=== PATIENT | female | born 1965 | race Asian ===

== ENCOUNTER 2020-09-01 09:15 | Emergency (ER) | payer MEDICARE, MEDICAID ==
[~2020-09-01] VITALS: Ht 165.1 cm; Wt 100.0 kg
--- NOTE | 2020-09-01 09:44 | NUR ---
Patient states she has the answer for balding and for not wearing masks. Patient states people are destorying the earth. Patient non-stop talking. Patient states her last seizure was before her surgery in 2002 in [place] Continue to monitor.
[2020-09-01 09:45] LABS: CLARITY,URINE CLOUDY (Clear); COLOR,URINE YELLOW (Yellow); GLUCOSE, URINE NEGATIVE (Neg); KETONES,URINE NEGATIVE (Neg); LEUKOCYTE ESTERASE ,URINE SMALL (Neg); NITRITES, URINE NEGATIVE (Neg); OCCULT BLOOD,URINE TRACE-INTACT (Neg); PROTEIN,URINE 100 mg/dl (Neg); UROBILINOGEN,URINE 0.2 E.U/dL (0.2-1.0)
[2020-09-01 09:46] LABS: UA COLLECTION TYPE CLN CATCH MIDSTREAM
[2020-09-01 09:52] LABS: SQUAMOUS EPITHELIAL CELL,UR MANY /LPF (FEW)
[2020-09-01 09:53] LABS: BACTERIA,URINE 2+ /HPF (Neg); MUCUS STRANDS MANY /LPF (Neg); RBC,URINE 0-2 /HPF (0-2); TRANSITIONAL EPI CELLS,URINE FEW /HPF
[2020-09-01 09:55] LABS: URINE AMPHETAMINE SCREEN NEGATIVE (Neg); URINE BARBITUATE SCREEN NEGATIVE (Neg); URINE BENZODIAZEPINES SCREEN NEGATIVE (Neg); URINE CANNABINOID SCREEN NEGATIVE (Neg); URINE COCAINE SCREEN NEGATIVE (Neg); URINE METHADONE SCREEN NEGATIVE (Neg); URINE OPIATE SCREEN NEGATIVE (Neg); URINE PHENCYCLIDINE SCREEN NEGATIVE (Neg)
[2020-09-01 10:28] LABS: BASOPHILS % (AUTO) 0.4 % (0-1); EOSINOPHILS % (AUTO) 0.6 % (0-6); HEMATOCRIT 42.7 % (35.0-45.0); HEMOGLOBIN 14.6 g/dl (12.0-16.0); LYMPHOCYTES # (AUTO) 1.4 X10'3 (1.1-4.8); LYMPHOCYTES % (AUTO) 21.2 % (21-51); MEAN CORPUSCULAR HGB CONC 34.1 g/dL (33.0-36.5); MEAN CORPUSCULAR VOLUME 85.2 FL (78-98); MEAN PLATELET VOLUME 7.8 FL (7.4-10.4); MONOCYTES # (AUTO) 0.4 X10'3 (0-0.9); NEUTROPHILS # (AUTO) 4.7 X10'3 (1.8-7.7); NEUTROPHILS % (AUTO) 71.8 % (42-75); PLATELET COUNT 261 X10'3 (140-440); RED BLOOD COUNT 5.02 X10'6 (4.20-5.60); RED CELL DISTRIBUTION WIDTH 13.5 % (11.5-14.5); WHITE BLOOD COUNT 6.6 X10'3 (4.5-11.0)
[2020-09-01 10:50] LABS: ALANINE AMINOTRANSFERASE 53 U/L (12-78); ALBUMIN/GLOBULIN RATIO 0.9 (1.1-1.5); ALKALINE PHOSPHATASE 62 IU/L (46-116); ANION GAP 11 (8-16); ASPARTATE AMINO TRANSFERASE 37 U/L (10-37); BILIRUBIN,TOTAL 0.4 MG/DL (0.1-1.0); BLOOD UREA NITROGEN 11 MG/DL (7-18); BUN/CREATININE RATIO 15.1 (6.6-38.0); CALCIUM 8.8 MG/DL (8.5-10.1); CHLORIDE 103 MMOL/L (99-107); CREATININE 0.73 MG/DL (0.40-0.90); GLUCOSE 182 MG/DL (70-104); SODIUM 141 MMOL/L (135-145); TOTAL CARBON DIOXIDE 26.8 MMOL/L (24-32); TOTAL PROTEIN 8.3 G/DL (6.4-8.2); eGFR 83 ML/MIN
[2020-09-01 10:59] LABS: ETHANOL < 0.010 GM/DL (0.0-0.010)
--- NOTE | 2020-09-01 11:00 | NUR ---
relieving RN for break, pt is sitting quietly on gurney, calm and cooperative at this time
--- NOTE | 2020-09-01 12:11 | NUR ---
Patient talking loudly at the nurses station. Patient does not realize how loud she is. Patient is just talking about [place], jobs, paperwork. Continue to monitor.
--- NOTE | 2020-09-01 12:30 | NUR ---
Packet Faxed to [facility] by Brandon Lay
--- NOTE | 2020-09-01 13:04 | NUR ---
Patient at nurses station trying to talk to RN about matos people. "I'm a woman and I don't want to share a BR with a male. You are making a bad situation in this place. I want to talk to a human who doesn't make bad decisions. I'm a female and I need my privacy. How can 2 people of the same sex have a baby. They can't. Do you think God make them this way. I don't.".........
--- NOTE | 2020-09-01 13:55 | NUR ---
relieving RN for break, pt is resting quietly on gurney, alert, calm and cooperative
--- NOTE | 2020-09-01 14:33 | NUR ---
Patient again at nurses station. Patient agitated and accusatory. RN asked patient to go back to her room. Patient took a few moments and then went back and sitting in her bed. Patient awaiting [facility] evaluation. RN called [facility] office and they have the packet. There are 3 [facility] workers today but office did not know which stone paver is going to see patient. Continue to monitor.
--- NOTE | 2020-09-01 16:34 | NUR ---
Patient still awaiting [facility] eval. RN called [facility] office again. They said they would let the female milk wagon driver know she has one pending at [facility]. Mother also called and will medicinal plant picker her daughter when she is ready to be discharged. Continue to monitor.
--- NOTE | 2020-09-01 17:23 | NUR ---
Patient is still awaiting [facility]. Patient is calm and reclining in bed. Continue to monitor.
--- NOTE | 2020-09-01 18:24 | NUR ---
[facility] is here to see the patient
--- NOTE | 2020-09-01 20:04 | NUR ---
The patient is sitting quietly on her bed waiting for [facility] to speak with her mother
--- NOTE | 2020-09-01 20:29 | NUR ---
The patient very agitated with one to one with [facility] size worker. She makes many statements that she is being persecuted. Yelling and confrontive. Making statements about her mother being crazy and the having all the problems and that she does not have any problems.
--- NOTE | 2020-09-01 20:58 | NUR ---
The patient is being released from the 5150 hold but the reinforcing steel worker wire mesh is requesting social work msw for the hospital becomes involved with the patient's current living situation.
--- NOTE | 2020-09-01 23:00 | NUR ---
The patient is demanding to leave. Dr. Maldonado is made aware.
--- NOTE | 2020-09-01 23:16 | NUR ---
has seen the patient and is not willing provide a taxi ride to her home because staff have been unable to reach the mother via phone. The patient is insisting to go. Per the MD she cannot be legally held 2nd to there being no 5150. The patient was encouraged to stay to unless the morning.
--- NOTE | 2020-09-01 23:33 | NUR ---
The patient is very circular in her thinking. She is unable to contact anyone she knows to come pick her up. Attempted numerous times to contact her mother but the phone number called comes back to a disconnected number.
--- NOTE | 2020-09-01 23:45 | NUR ---
The patient is asking to use the phone to call 911 and the request was denied
--- NOTE | 2020-09-02 00:42 | NUR ---
The patient was made aware that she is not on a hold and her belongings were all returned to her. She apparently has chosen to stay and appears to be asleep on her bed.
--- NOTE | 2020-09-02 02:44 | NUR ---
The patient appears to be sleeping
--- NOTE | 2020-09-02 04:41 | NUR ---
The patient appears to be sleeping
[2020-09-02 06:01] VITALS: BP 120/57
--- NOTE | 2020-09-02 06:30 | NUR ---
Received Pt sitting up in bed looking around and in no distress. Pt pleasant and cooperative and understands she can go home but doesn't have coley to her home or her purse with ID or money. Page sent to [employer] for consult. Mothers phone responds as disconnected. Pt ate breakfast well.
--- NOTE | 2020-09-02 07:21 | NUR ---
[employer] REQUESTED BY JJ RODRIGUEZ
--- NOTE | 2020-09-02 09:49 | NUR ---
Mary Alice, social sciences chair here to speak with patient. Will try and call pt's mother when she gets to work as home phone is disconnected.
--- NOTE | 2020-09-02 11:15 | NUR ---
Pt is no longer on a 5150 hold. Pt discharged. Picked up by mother in POV to return home. Pt denies SI/HI.
== END 2020-09-02 11:33 | disposition home or self-care (01) ==
LOC: ER 09:17
DX: R46.89 Other symptoms and signs involving appearance and behavior (principal); R62.59 Other lack of expected normal physiological development in childhood; R45.1 Restlessness and agitation; Z86.69 Personal history of other diseases of the nervous system and sense organs; Z98.890 Other specified postprocedural states
CPT/HCPCS: 36415; 80053; 80305; 80320; 81001; 84443; 85025; 99285